=== PATIENT | female | born 1960 | race Caucasian/White ===

== ENCOUNTER 2022-12-19 13:21 | Inpatient (IN) | payer BC ==
[~2022-12-19] VITALS: Ht 167.6 cm; Wt 83.9 kg
[2022-12-19 13:30] VITALS: BP 148/80
--- NOTE | 2022-12-19 13:36 | NUR ---
[facility] TO ER BED 11
[2022-12-19] MEDS ORDERED: ONDANSETRON 4 MG/2 ML VIAL IM ONE (14:20)
[2022-12-19 14:25] LABS: BASOPHILS % (AUTO) 0.2 % (0.0-2.0); EOSINOPHILS % (AUTO) 0.2 % (0.0-4.0); HEMATOCRIT 38.6 % (36-48); HEMOGLOBIN 13.2 g/dL (12.0-16.0); LYMPHOCYTES # (AUTO) 0.8 K/uL (2.5-16.5); LYMPHOCYTES % (AUTO) 4.6 % (20.5-51.1); MEAN CORPUSCULAR HEMOGLOBIN 28 pg (27-31); MEAN CORPUSCULAR HGB CONC 34 g/dL (33-37); MEAN CORPUSCULAR VOLUME 81.5 fL (80-94); MONOCYTES # (AUTO) 0.4 K/uL (0.8-1.0); MONOCYTES % (AUTO) 2.4 % (1.7-9.3); NEUTROPHILS # (AUTO) 16.6 K/uL (1.8-7.7); NEUTROPHILS % (AUTO) 92.6 % (42.2-75.2); PLATELET COUNT (AUTO) 312 K/uL (140-450); RED BLOOD CELL COUNT(AUTO) 4.73 MIL/uL (4.20-5.40); RED CELL DISTRIBUTION WIDTH 14.5 % (11.6-13.7); WHITE BLOOD COUNT (AUTO) 17.9 K/uL (4.8-10.8)
[2022-12-19 14:52] LABS: ASPARTATE AMINOTRANSFERASE 12 U/L (15-37)
[2022-12-19 14:58] LABS: ALBUMIN 4.1 g/dL (3.4-5.0); ANION GAP 18.2 (8-16); CARBON DIOXIDE 23.5 mmol/L (21-32); CHLORIDE 101 mmol/L (98-107); CREATININE 0.8 mg/dL (0.6-1.3); GFR ARICAN-AMERICAN 94 mL/min (>90); GLUCOSE 148 mg/dL (74-106); POTASSIUM 3.7 mmol/L (3.5-5.1); SODIUM SERUM 139 mmol/L (136-145); TOTAL BILIRUBIN 0.4 mg/dL (0.0-1.0); UREA NITROGEN, BLOOD 17 mg/dL (7-18)
--- NOTE | 2022-12-19 15:18 | NUR ---
AMBULATED TO BR BY SELF WITHOUT ASKING FOR STAFF HELP. NOW BACK IN BED, SEIZURE PRECAUTIONS OBSERVED. FORGOT TO GIVE URINE SAMPLE
[2022-12-19] MEDS ORDERED: ASPIRIN 325 MG TAB PO ONE (16:25)
[2022-12-19] MEDS ORDERED: cefTRIAXone 2,000 MG in DEXTROSE 5% 100 ML IV ONE (16:25)
[2022-12-19] MEDS ORDERED: DOCUSATE SODIUM 100 MG GELCAP PO PRN (16:40)
[2022-12-19] MEDS ORDERED: ONDANSETRON 4 MG/2 ML VIAL IVP PRN (16:40)
[2022-12-19] MEDS ORDERED: LORazepam 2 MG/ML VIAL IVP PRN (16:40)
[2022-12-19] MEDS ORDERED: POTASSIUM CHLORIDE 10 MEQ TABER PO PRN (16:40)
[2022-12-19] MEDS ORDERED: LOVENOX 1MG/KG Q12H SUBQ SCH (16:40)
[2022-12-19] MEDS ORDERED: MAG SULF 2000 MG/WATER PREMIX 50 ML IV PRN (16:40)
[2022-12-19] MEDS ORDERED: ZOLPIDEM 10 MG TAB PO PRN (16:40)
[2022-12-19] MEDS ORDERED: ACETAMINOPHEN 325 MG TAB PO PRN (16:40)
[2022-12-19] MEDS ORDERED: MORPHINE SULFATE 2 MG/ML SYR IVP PRN (16:40)
--- NOTE | 2022-12-19 17:17 | NUR ---
PT SWABBED FOR COVID
[2022-12-19] MEDS ORDERED: ASPIRIN 325 MG TAB ONE (18:02)
[2022-12-19] MEDS ORDERED: cefTRIAXone 2,000 MG VIAL ONE (18:04)
[2022-12-19] MEDS: ENOXAPARIN 80 MG/0.8 ML SYR SUBQ SCH (18:32)
--- NOTE | 2022-12-19 18:44 | NUR ---
ADMITS TO DAILY [facility] SMOKING "IM ON VACTION" WILL PROVIDE URINE SAMPLE NEXT TIME SHE GOES TO BR
[2022-12-19] MEDS ORDERED: COQ (19:08)
--- NOTE | 2022-12-19 19:25 | NUR ---
SBAR TO ALESIA CLAYTON
--- NOTE | 2022-12-19 19:36 | NUR ---
Patient resting in bed, A/Ox4, chest rise and fall symmetrical, no c/o pain or s/s of distress, patient on monitor, seizure precautions/pads in place.
[2022-12-19] MEDS ORDERED: AZITHROMYCIN 500 MG INJ VIAL IV ONE (19:48)
[2022-12-19] MEDS: AZITHROMYCIN 500 MG in DEXTROSE 5% 250 ML IV SCH (19:54)
[2022-12-19] MEDS ORDERED: NACL 0.9% 500 ML IV SCH (20:45)
--- NOTE | 2022-12-19 20:50 | NUR ---
Patient resting in bed, A/Ox4, chest rise and fall symmetrical, no c/o pain or s/s of distress, patient on monitor, seizure precautions/pads in place.
[2022-12-19] MEDS ORDERED: NACL 0.9% 500 ML IV ONE (21:00)
[2022-12-19 21:42] LABS: APPEARANCE,URINE CLEAR (CLEAR); BILIRUBIN,URINE NEGATIVE (NEGATIVE); BLOOD, URINE NEGATIVE (NEGATIVE); COLOR,URINE YELLOW (YELLOW); LEUKOCYTE ESTERASE ,URINE TRACE (NEGATIVE); NITRITE, URINE NEGATIVE (NEGATIVE); PH,URINE 6.5 (5.0-9.0); UGLUCOSE NEGATIVE (NEGATIVE)
[2022-12-19 22:00] LABS: BARBITURATE, URINE NEGATIVE ng/ml (NEG <=200); BENZODIAZEPINE, URINE NEGATIVE ng/mL (NEG <=200); CANNABINOID, URINE POSITIVE ng/mL (NEG <=50); COCAINE, URINE NEGATIVE ng/mL (NEG <=300); OPIATE, URINE POSITIVE ng/mL (NEG <=2000); PHENCYCLIDINE SCREEN,URINE NEGATIVE ng/mL (NEG <=25); RBC,URINE NONE SEEN /HPF (0-5)
--- NOTE | 2022-12-19 22:19 | NUR ---
Patient resting in bed, A/Ox4, chest rise and fall symmetrical, no c/o pain or s/s of distress, patient on monitor, seizure precautions/pads in place.
--- NOTE | 2022-12-20 00:45 | NUR ---
Patient resting in bed, A/Ox4, chest rise and fall symmetrical, no c/o pain or s/s of distress, patient on monitor, seizure precautions/pads in place.
--- NOTE | 2022-12-20 02:30 | NUR ---
Patient resting in bed, A/Ox4, chest rise and fall symmetrical, no c/o pain or s/s of distress, patient on monitor, seizure precautions/pads in place.
--- NOTE | 2022-12-20 04:27 | NUR ---
Patient resting in bed, A/Ox4, chest rise and fall symmetrical, no c/o pain or s/s of distress, patient on monitor, seizure precautions/pads in place.
[2022-12-20] MEDS: ENOXAPARIN 80 MG/0.8 ML SYR SUBQ SCH (06:29)
--- NOTE | 2022-12-20 06:32 | NUR ---
Patient resting in bed, A/Ox4, chest rise and fall symmetrical, no c/o pain or s/s of distress, patient on monitor, seizure precautions/pads in place.
--- NOTE | 2022-12-20 07:25 | NUR ---
Change of shift report given to AM shift Nurse Asa CLAYTON. AM shift Nurse Asa RN verbalized understanding of report, no further questions.
[2022-12-20 07:48] LABS: BASOPHILS % (AUTO) 0.3 % (0.0-2.0); EOSINOPHILS % (AUTO) 0.1 % (0.0-4.0); HEMATOCRIT 34.3 % (36-48); LYMPHOCYTES # (AUTO) 1.1 K/uL (2.5-16.5); LYMPHOCYTES % (AUTO) 11.6 % (20.5-51.1); MEAN CORPUSCULAR HEMOGLOBIN 29 pg (27-31); MEAN CORPUSCULAR HGB CONC 35 g/dL (33-37); MEAN CORPUSCULAR VOLUME 82.6 fL (80-94); MONOCYTES # (AUTO) 0.5 K/uL (0.8-1.0); MONOCYTES % (AUTO) 5.5 % (1.7-9.3); NEUTROPHILS # (AUTO) 7.9 K/uL (1.8-7.7); NEUTROPHILS % (AUTO) 82.5 % (42.2-75.2); PLATELET COUNT (AUTO) 256 K/uL (140-450); RED BLOOD CELL COUNT(AUTO) 4.15 MIL/uL (4.20-5.40); RED CELL DISTRIBUTION WIDTH 14.6 % (11.6-13.7); WHITE BLOOD COUNT (AUTO) 9.6 K/uL (4.8-10.8)
--- NOTE | 2022-12-20 08:51 | NUR ---
Pt resting in bed. Pt has no complaints at this time. VSS.
[2022-12-20 09:32] LABS: ANION GAP 10.4 (8-16); CARBON DIOXIDE 28.7 mmol/L (21-32); CREATININE 0.7 mg/dL (0.6-1.3); POTASSIUM 3.1 mmol/L (3.5-5.1)
[2022-12-20] MEDS: ASPIRIN 81 MG TAB.CHEW PO SCH (09:47)
--- NOTE | 2022-12-20 16:54 | NUR ---
Report given to receiving RN. VSS. Pt aware and agreeable to admission. Pt transported via gurney with all belongings.
[2022-12-20 17:13] VITALS: BP 150/83
--- NOTE | 2022-12-20 17:13 | NUR ---
PT ARRIVED TO [facility] VIA [facility], AMBULATED FROM [facility] TO ROOM. STEADY GAIT. PT AOX4, ABLE TO VERBALIZE NEEDS. RESPIRATIONS EVEN AND UNLABORED ON RA. IV ON R WRIST. SL. SKIN WARM AND DRY. CALL LIGHT WITHIN REACH. ALL PRECAUTIONS IN PLACE.
--- NOTE | 2022-12-20 19:30 | NUR ---
ENDORSED PT TO AIRCREWMAN NURSE FOR CONTINUITY OF CARE. PT IN STABLE CONDITION.
--- NOTE | 2022-12-20 19:31 | NUR ---
RECEIVED REPORT FROM VALENTINO LORENZ FOR CONTINUITY OF CARE. PT AWAKE WITH FAMILY MEMBER AT BEDSIDE. AMBULATORY. ABLE TO MAKE NEEDS KNOWN. ON PROCESS SUPERVISOR. RESPIRATIONE JACQUIE MEDEL UNLABORED ON RA. DENIES PAIN. SKIN INTACT, WARM AND DRY TO TOUCH. INITIAL ASSESSMENT DONE. POC DISCUSSED WITH PT AND FORREST VILLALOBOS. CALL LIGHT WITHIN REACH. SAFETY PRECAUTIONS IN PLACE.
[2022-12-20] MEDS ORDERED: AZITHROMYCIN 500 MG INJ VIAL IV ONE (19:49)
[2022-12-20] MEDS: AZITHROMYCIN 500 MG in DEXTROSE 5% 250 ML IV SCH (20:25)
[2022-12-20 22:43] VITALS: BP 153/71
[2022-12-21] VITALS: BP 156/78
[2022-12-21 04:00] VITALS: BP 135/67
--- NOTE | 2022-12-21 04:04 | NUR ---
V/S TAKEN. PT SLEEPING. BREATHING EVEN AND UNLABORED. NO DISTRESS NOTED. SAFETY PRECAUTIONS IN PLACE.
[2022-12-21 06:28] LABS: BASOPHILS % (AUTO) 0.6 % (0.0-2.0); EOSINOPHILS # (AUTO) 0.1 K/uL (0-0.4); EOSINOPHILS % (AUTO) 2.1 % (0.0-4.0); HEMATOCRIT 33.9 % (36-48); HEMOGLOBIN 11.8 g/dL (12.0-16.0); LYMPHOCYTES # (AUTO) 1.5 K/uL (2.5-16.5); LYMPHOCYTES % (AUTO) 22.6 % (20.5-51.1); MEAN CORPUSCULAR HEMOGLOBIN 29 pg (27-31); MEAN CORPUSCULAR HGB CONC 35 g/dL (33-37); MEAN CORPUSCULAR VOLUME 82.7 fL (80-94); MONOCYTES # (AUTO) 0.6 K/uL (0.8-1.0); MONOCYTES % (AUTO) 8.1 % (1.7-9.3); NEUTROPHILS # (AUTO) 4.5 K/uL (1.8-7.7); NEUTROPHILS % (AUTO) 66.6 % (42.2-75.2); PLATELET COUNT (AUTO) 250 K/uL (140-450); RED BLOOD CELL COUNT(AUTO) 4.09 MIL/uL (4.20-5.40); RED CELL DISTRIBUTION WIDTH 14.3 % (11.6-13.7); WHITE BLOOD COUNT (AUTO) 6.8 K/uL (4.8-10.8)
[2022-12-21 06:54] LABS: ANION GAP 12.4 (8-16); CARBON DIOXIDE 27.2 mmol/L (21-32); CREATININE 0.7 mg/dL (0.6-1.3); POTASSIUM 3.6 mmol/L (3.5-5.1)
--- NOTE | 2022-12-21 07:30 | NUR ---
ENDORSED PT TO FORREST DIAZ FOR CONTINUITY OF CARE. PT IS STABLE.
[2022-12-21 08:00] VITALS: BP 148/94
--- NOTE | 2022-12-21 09:20 | NUR ---
PATIENT HAS BEEN SCREENED AND CATEGORIZED MODERATE NUTRITION RISK. PATIENT WILL BE SEEN WITHIN 3-5 DAYS OF ADMISSION. 12/19/22-12/24/[address]
[2022-12-21] MEDS: ASPIRIN 81 MG TAB.CHEW PO SCH (10:03)
[2022-12-21] MEDS: ENOXAPARIN 40 MG/0.4 ML SYR SUBQ SCH (10:03)
[2022-12-21 12:00] VITALS: BP 148/79
[2022-12-21 16:00] VITALS: BP 135/78
[2022-12-21] MEDS: AZITHROMYCIN 500 MG in DEXTROSE 5% 250 ML IV SCH (19:05)
--- NOTE | 2022-12-21 19:30 | NUR ---
RECEIVED REPORT FROM DAY SHIFT NURSE EMILY FOR CONTINUITY OF CARE. PATIENT IS A&O X4. PATIENT IS ON ROOM AIR, BREATHING IS NORMAL WITH SYMMETRICAL RISE AND FALL OF CHEST. IV IS A 22G L HAND, RUNNING NS AT TKO. PATIENT IS AWAKE, LYING IN SEMI-FOWLERS POSITION. BED IS IN LOWEST POSITION, WHEELS LOCKED, CALL LIGHT IN PLACE. WILL CONTINUE TO OBSERVE PATIENT.
[2022-12-21 20:00] VITALS: BP 172/88
[2022-12-21] MEDS: lisinopriL 20 MG TAB PO SCH (20:31)
--- NOTE | 2022-12-21 20:40 | NUR ---
PATIENT'S BP WAS 172/88 (LOWEST OF TWO BP READINGS). MESSAGED EDGE BEADER PHYSICIAN DR. ENGLAND. DR. ENGLAND ASKED IF PATIENT WAS ON ANY TYPE OF BP MEDICATIONS AND ANY HISTORY OF KIDNEY DISEASE. I CHECKED WITH PATIENT, AND PATIENT STATED THAT SHE HAS NEVER BEEN ON BP MEDICATION AND HAD NO HISTORY OF KIDNEY DISEASE; JUST A HISTORY OF A PAST HYSTERECTOMY AND A LAP-BAND REMOVAL; THAT'S ALL PER PATIENT. I INFORMED DR. ENGLAND OF THIS, AND SHE ORDERED LISINOPRIL 20MG QD, AND ONE TABLET TO BE GIVEN NOW. I PUT IN THE ORDER AND NOTIFIED THE PHARMACY. I ADMINISTERED THE MEDICATION ONCE IT WAS AUTHORIZED BY THE PHARMACIST. PATIENT TOLERATED THE MEDICATION WELL WITHOUT ANY DIFFICULTY IN SWALLOWING. PATIENT'S BREATHING IS NORMAL WITH SYMMETRICAL RISE AND FALL OF CHEST. WILL CONTINUE TO OBSERVE PATIENT.
[2022-12-22] VITALS: BP 141/70
--- NOTE | 2022-12-22 02:00 | NUR ---
LOOKED IN ON PATIENT. PATIENT WAS SLEEPING WITH SYMMETRICAL RISE AND FALL OF CHEST. WILL CONTINUE TO OBSERVE PATIENT.
[2022-12-22 04:00] VITALS: BP 145/70
--- NOTE | 2022-12-22 05:30 | NUR ---
PATIENT SLEPT THROUGHOUT THE NIGHT. PATIENT AMBULATED TO THE BATHROOM ONCE, TAKING THE IV POLE WITH HER. PATIENT HAD ONE VOID IN THE BATHROOM AND NO BM. PATIENT'S BREATHING IS NORMAL WITH SYMMETRICAL RISE AND FALL OF CHEST. WILL CONTINUE TO OBSERVE PATIENT.
[2022-12-22 07:10] LABS: BASOPHILS # (AUTO) 0.1 K/uL (0.00-0.22); BASOPHILS % (AUTO) 0.8 % (0.0-2.0); EOSINOPHILS # (AUTO) 0.3 K/uL (0-0.4); EOSINOPHILS % (AUTO) 3.9 % (0.0-4.0); HEMATOCRIT 35.1 % (36-48); HEMOGLOBIN 12.1 g/dL (12.0-16.0); LYMPHOCYTES # (AUTO) 1.7 K/uL (2.5-16.5); LYMPHOCYTES % (AUTO) 25.3 % (20.5-51.1); MEAN CORPUSCULAR HEMOGLOBIN 28 pg (27-31); MEAN CORPUSCULAR HGB CONC 34 g/dL (33-37); MONOCYTES # (AUTO) 0.7 K/uL (0.8-1.0); MONOCYTES % (AUTO) 10.1 % (1.7-9.3); NEUTROPHILS # (AUTO) 4.1 K/uL (1.8-7.7); NEUTROPHILS % (AUTO) 59.9 % (42.2-75.2); PLATELET COUNT (AUTO) 247 K/uL (140-450); RED BLOOD CELL COUNT(AUTO) 4.28 MIL/uL (4.20-5.40); RED CELL DISTRIBUTION WIDTH 14.4 % (11.6-13.7); WHITE BLOOD COUNT (AUTO) 6.8 K/uL (4.8-10.8)
[2022-12-22 07:27] LABS: ANION GAP 12.9 (8-16); CARBON DIOXIDE 27.8 mmol/L (21-32); CREATININE 0.7 mg/dL (0.6-1.3); POTASSIUM 3.7 mmol/L (3.5-5.1)
--- NOTE | 2022-12-22 07:30 | NUR ---
ENDORSED TO DAY SHIFT NURSE SUSAN FOR CONTINUITY OF CARE. PATIENT IS STABLE.
[2022-12-22 08:00] VITALS: BP 121/56
[2022-12-22] MEDS: ASPIRIN 81 MG TAB.CHEW PO SCH (09:05)
[2022-12-22] MEDS: lisinopriL 20 MG TAB PO SCH (09:06)
[2022-12-22] MEDS: ENOXAPARIN 40 MG/0.4 ML SYR SUBQ SCH (09:08)
[2022-12-22 12:00] VITALS: BP 131/68
--- NOTE | 2022-12-22 15:33 | NUR ---
DC PLANNING ASSESSMENT COMPLETE PLEASE REFER TO ASSESSMENT FOR ADDITIONAL DETAILS PT IS A 62 YR OLD FEMALE ADMITTED TO [facility] FROM HOME WITH DX OF CHEST PAIN. NO SIGNIFICANT PAST MEDICAL HX REPORTED BY PATIENT. PT DENIES SUBSTANCE USE DESPITE TESTING POSITIVE FOR OPIATES AND CANNABIS AT ADMISSIONS. PT REPORTS BEING INDEPENDENT IN ALL ACTIVITIES AND DENIES USE OF DME. PT RESIDES IN A SINGLE STORY HOME WITH HER , AT THE ADDRESS LISTED ON FILE. PT REPORTS DC PLAN IS TO RETURN HOME WITH PROVIDING TRANSPORTATION, WHEN MEDICALLY STABLE. SW INQUIRED ON RESOURCES NEEDED, PT DECLINED Addendum: 12/22/22 at 1534 by Arjun TUCKER Amended: Links added.
[2022-12-22 16:00] VITALS: BP 124/65
[2022-12-22] MEDS: AZITHROMYCIN 500 MG in DEXTROSE 5% 250 ML IV SCH (18:19)
--- NOTE | 2022-12-22 19:30 | NUR ---
RECEIVED REPORT FROM DAY SHIFT NURSE SUSAN FOR CONTINUITY OF CARE. PATIENT IS A&O X4. PATIENT IS ON ROOM AIR, BREATHING IS NORMAL WITH SYMMETRICAL RISE AND FALL OF CHEST. IV IS A 22G L HAND, RUNNING ANTIBIOTIC IVPB. PATIENT IS AWAKE, LYING IN SEMI-FOWLERS POSITION. BED IS IN LOWEST POSITION, WHEELS LOCKED, CALL LIGHT IN PLACE. WILL CONTINUE TO OBSERVE PATIENT.
--- NOTE | 2022-12-22 19:49 | NUR ---
ENDORSE PATIENT IN STABLE CONDITION TO PM SHIFT NURSE WHILE IV ANTIBIOTIC INFUSING VIA L. WRIST PIV SITE
[2022-12-22 20:00] VITALS: BP 118/64
--- NOTE | 2022-12-22 20:15 | NUR ---
PATIENT COMPLAINED ABOUT HER IV HURTING. STOPPED ANTIBIOTIC AND LOOKED AT IV SITE. IV WAS INFILTRATED (MILD FLUID IN ARM). IV WAS REMOVED FROM PATIENT AND GAUZE WAS PLACED ON IV SITE. IV ANTIBIOTIC HAD FINISHED AND NO IV FLUIDS WERE RUNNING AT THE TIME.
--- NOTE | 2022-12-22 21:00 | NUR ---
PATIENT WAS NOT IN BED AND NOT IN THE ROOM AT 2030. SECURITY WAS CALLED. LOOKED FOR PATIENT IN THE HALLWAY, LOBBY, AND PARKING LOT. PATIENT WAS FOUND IN THE MIDDLE HALLWAY BATHROOM; PATIENT STATED SHE WAS TAKING A SHOWER. AFTER PATIENT RETURNED TO HER ROOM IT WAS EXPLAINED TO HER THAT SHE NEEDS TO LET US KNOW IF SHE WANTS TO TAKE A SHOWER AND THEN WE CAN SET UP A TIME FOR HER TO DO SO IF IT'S APPROPRIATE. PATIENT RESPONDED BY SMILING AND SAYING "SURE". PATIENT IS STILL A&O X4; WILL CONTINUE TO OBSERVE PATIENT.
[2022-12-23] VITALS (7 sets, daily range): BP systolic 113–132; BP diastolic 61–81
--- NOTE | 2022-12-23 03:30 | NUR ---
NEW IV WAS PLACED IN PATIENT'S RIGHT HAND. NEW IV IS A 20G IN THE RIGHT; IV IS PATENT. WILL CONTINUE TO OBSERVE PATIENT.
[2022-12-23 07:09] LABS: BASOPHILS # (AUTO) 0.1 K/uL (0.00-0.22); BASOPHILS % (AUTO) 0.9 % (0.0-2.0); EOSINOPHILS # (AUTO) 0.3 K/uL (0-0.4); EOSINOPHILS % (AUTO) 5.3 % (0.0-4.0); HEMATOCRIT 35.3 % (36-48); HEMOGLOBIN 12.2 g/dL (12.0-16.0); LYMPHOCYTES # (AUTO) 1.5 K/uL (2.5-16.5); LYMPHOCYTES % (AUTO) 25.2 % (20.5-51.1); MEAN CORPUSCULAR HEMOGLOBIN 28 pg (27-31); MEAN CORPUSCULAR HGB CONC 35 g/dL (33-37); MEAN CORPUSCULAR VOLUME 81.9 fL (80-94); MONOCYTES # (AUTO) 0.5 K/uL (0.8-1.0); MONOCYTES % (AUTO) 9.1 % (1.7-9.3); NEUTROPHILS # (AUTO) 3.6 K/uL (1.8-7.7); NEUTROPHILS % (AUTO) 59.5 % (42.2-75.2); PLATELET COUNT (AUTO) 249 K/uL (140-450); RED BLOOD CELL COUNT(AUTO) 4.31 MIL/uL (4.20-5.40); RED CELL DISTRIBUTION WIDTH 14.6 % (11.6-13.7)
[2022-12-23 07:13] LABS: ANION GAP 8.6 (8-16); CARBON DIOXIDE 30.4 mmol/L (21-32); CREATININE 0.7 mg/dL (0.6-1.3)
--- NOTE | 2022-12-23 07:43 | NUR ---
ENDORSED TO DAY SHIFT NURSE SUSAN FOR CONTINUITY OF CARE. PATIENT IS STABLE.
[2022-12-23] MEDS: ASPIRIN 81 MG TAB.CHEW PO SCH (09:32)
[2022-12-23] MEDS: lisinopriL 20 MG TAB PO SCH (09:32)
[2022-12-23] MEDS: ENOXAPARIN 40 MG/0.4 ML SYR SUBQ SCH (09:33)
[2022-12-23] MEDS ORDERED: LISI20TA29 PO (10:25)
[2022-12-23] MEDS ORDERED: ASPI81CT95 PO (10:25)
--- NOTE | 2022-12-23 14:30 | NUR ---
12/23/22 RD INITIAL ASSESSMENT COMPLETED PLEASE REFER TO NUTRITION ASSESSMENT UNDER CARE ACTIVITY FOR ESTIMATED NUTRITIONAL NEEDS. 1. CONTINUE CARDIAC DIET TOLERATED 2. MONITOR GI, PO INTAKE, AND LAB VALUES. 3. RD TO FOLLOW-UP 7 DAYS, LOW RISK REVIEWED BY ROMELIA ROWAN RD
[2022-12-23] MEDS: AZITHROMYCIN 500 MG in DEXTROSE 5% 250 ML IV SCH (18:02)
--- NOTE | 2022-12-23 19:56 | NUR ---
ENDORSE PATIENT IN STABLE CONDITION TO PM SHIFT NURSE WHILE IV ANTIBIOTIC INFUSING VIA R. FOREARM PIV SITE. PATIENT STILL WAITING FOR EEG TO BE DONE BEFORE BE DISCHARGE HOME.
--- NOTE | 2022-12-23 20:30 | NUR ---
EEG ON GOING , WILL CONT. TO MONITOR .
--- NOTE | 2022-12-23 21:50 | NUR ---
EEG DONE , PER LICENSING DIRECTOR WHO DID EEG PER EEG TRACING THERE IS AN EVIDENCE PT HAD SEIZURE IN THE PAST , PER LICENSING DIRECTOR SEND PT TO HOME TONIGHT IS NOT FAVORABLE SINCE PT HAS NO ANTI S2 MEDS . PER LICENSING DIRECTOR HE SUGGESTING PUT PT ON ANTI S2 MED FIRST THE REPEAT EEG BEFORE PT SEND TO HOME - INFORMED DR. MAHMOOD ABOUT IT - PER DR. MAHMOOD WAIT THE OFFICIAL RESULT OF EEG . CHARGE NURSE AWARE . WILL CONT. TO MONITOR THE PT .
[2022-12-24] VITALS: BP 120/77
--- NOTE | 2022-12-24 | NUR ---
ROUNDS , NO S/ SX OF ACUTE DISTRESS NOTED AT THIS TIME , CALL LIGHT WITHIN REACH .
--- NOTE | 2022-12-24 02:00 | NUR ---
SLEEPING , CHEST RISE AND FALL EQUALLY , WILL CONT. TO MONITOR , CALL LIGHT WITHIN REACH .
[2022-12-24 04:00] VITALS: BP 114/65
--- NOTE | 2022-12-24 04:00 | NUR ---
NO COMPLAIN MADE . WILL CONT. TO MONITOR
--- NOTE | 2022-12-24 06:00 | NUR ---
RESTING ON BED , NEW GOWN PROVIDED .
[2022-12-24 07:25] LABS: BASOPHILS # (AUTO) 0.1 K/uL (0.00-0.22); EOSINOPHILS # (AUTO) 0.4 K/uL (0-0.4); EOSINOPHILS % (AUTO) 5.8 % (0.0-4.0); HEMATOCRIT 36.2 % (36-48); HEMOGLOBIN 12.4 g/dL (12.0-16.0); LYMPHOCYTES % (AUTO) 29.4 % (20.5-51.1); MEAN CORPUSCULAR HEMOGLOBIN 28 pg (27-31); MEAN CORPUSCULAR HGB CONC 34 g/dL (33-37); MEAN CORPUSCULAR VOLUME 82.9 fL (80-94); MONOCYTES # (AUTO) 0.7 K/uL (0.8-1.0); MONOCYTES % (AUTO) 9.4 % (1.7-9.3); NEUTROPHILS # (AUTO) 3.8 K/uL (1.8-7.7); NEUTROPHILS % (AUTO) 54.4 % (42.2-75.2); PLATELET COUNT (AUTO) 246 K/uL (140-450); RED BLOOD CELL COUNT(AUTO) 4.37 MIL/uL (4.20-5.40); RED CELL DISTRIBUTION WIDTH 14.1 % (11.6-13.7); WHITE BLOOD COUNT (AUTO) 6.9 K/uL (4.8-10.8)
--- NOTE | 2022-12-24 07:30 | NUR ---
ENDORSED PT FOR CONT. OF CARE . INFORMED DR. NIX PT IS STILL HERE . AND EEG DONE - ENDORSED TO AM SHIFT .
[2022-12-24 07:34] LABS: ANION GAP 10.2 (8-16); CARBON DIOXIDE 29.2 mmol/L (21-32); CREATININE 0.8 mg/dL (0.6-1.3); POTASSIUM 4.4 mmol/L (3.5-5.1)
[2022-12-24 08:00] VITALS: BP 131/64
[2022-12-24] MEDS: ASPIRIN 81 MG TAB.CHEW PO SCH (09:59)
[2022-12-24] MEDS: lisinopriL 20 MG TAB PO SCH (09:59)
[2022-12-24] MEDS: ENOXAPARIN 40 MG/0.4 ML SYR SUBQ SCH (10:05)
[2022-12-24] MEDS ORDERED: KEP500 PO (12:30)
--- NOTE | 2022-12-24 14:58 | NUR ---
DISCHARGE PATIENT IN STABLE CONDITION PER PCP ORDER. DISCHARGE INSTRUCTION GIVEN; DISCHARGE CONSENT SIGNED; PATIENT IS CURRENT ON MED/SURG AND HAS NO TEL MONITOR, IV ACCESS REMOVED PRIOR DISCHARGE. PATIENT PREFER TO WALK OUT THE FACILITY & NO DISTRESS NOTE
== END 2022-12-24 14:50 | disposition home or self-care (01) | DRG 311 ==
LOC: MED 13:21 → MMU 16:50 → MTU 18:27
PROVIDERS: ADMIT Family Medicine; ATTEND Family Medicine
PROC: 4A10X4Z Monitoring of Central Nervous Electrical Activity, External Approach (ICD-10-PCS; principal; 2022-12-24)
DX: I24.8 Other forms of acute ischemic heart disease (principal); J18.9 Pneumonia, unspecified organism; R56.9 Unspecified convulsions; E87.6 Hypokalemia; F19.10 Other psychoactive substance abuse, uncomplicated; R73.9 Hyperglycemia, unspecified; D72.829 Elevated white blood cell count, unspecified; Z90.710 Acquired absence of both cervix and uterus; Z87.891 Personal history of nicotine dependence; Z20.822 Contact with and (suspected) exposure to COVID-19
CPT/HCPCS: 36415; 70450; 71045; 80048; 80053; 80305; 81001; 83605; 83735; 84484; 85025; 87040; 87081; 87086; 93005; 95816; 96365; 96372; 99285; J0456; J0696; J1650; J2270; J2405; J3475; J7060; Q0092